=== PATIENT | male | born 1950 ===

== ENCOUNTER 2019-04-29 19:05 | Emergency (ER) | payer OTHER ==
[~2019-04-29] VITALS: Ht 193 cm; Wt 96.6 kg
[2019-04-29] MEDS ORDERED: AMANTADINE100 MG (19:54)
[2019-04-29] MEDS ORDERED: CARBIDOPA-LEVO1 EAC4 (19:56)
[2019-04-29] MEDS ORDERED: CRESTOR20 MG (19:56)
[2019-04-29] MEDS ORDERED: JANUMET 50-5001 EACH (19:56)
[2019-04-29] MEDS ORDERED: LISINOPRIL20 MG (19:56)
== END 2019-04-29 22:20 | disposition home or self-care (01) ==
LOC: ER 19:05
DX: S61.452A Open bite of left hand, initial encounter (principal); W54.0XXA Bitten by dog, initial encounter; Y93.89 Activity, other specified; Y92.413 State road as the place of occurrence of the external cause; Y99.8 Other external cause status

== ENCOUNTER 2022-10-14 14:31 | Emergency (ER) | payer OTHER ==
[~2022-10-14] VITALS: Ht 193 cm; Wt 95.3 kg
[~2022-10-14 14:31] MED LIST: AMANTADINE100 MG; CARBIDOPA-LEVO1 EAC4; CRESTOR20 MG; JANUMET 50-5001 EACH; LISINOPRIL20 MG
[2022-10-14] MEDS ORDERED: GABAPENTIN600 MG PO (14:42)
[2022-10-14] MEDS ORDERED: ELIQUIS5 MG PO (14:42)
[2022-10-14] MEDS ORDERED: JANUMET XR 50-1 EAC1 PO (14:42)
== END 2022-10-14 17:01 | disposition home or self-care (01) ==
LOC: ER 14:31
DX: R05.9 Cough, unspecified (principal)